=== PATIENT | female | born 1975 | race Caucasian/White ===

== ENCOUNTER 2019-10-03 06:05 | Day surgery (SDC) | payer OTHER ==
[~2019-10-03] VITALS: Ht 162.6 cm; Wt 99.3 kg
[2019-10-03 06:32] VITALS: BP 116/71
--- NOTE | 2019-10-03 06:52 | NUR ---
[facility] LAB SEND AND FAXED TO DR JEMAL MINOR OFFICE ON 09/27/19 AT 1300 , AND GAVE A COPY TO DR PRESTON- ANESTHESIOLOGIST-NO FURTHER ORDER, OK'D FOR SURGERY.
[2019-10-03 10:28] VITALS: BP 103/51
== END 2019-10-03 10:25 | disposition home or self-care (01) ==
LOC: DS 06:05 → OR 07:30 → DS 10:25
PROVIDERS: ATTEND Obstetrics & Gynecology
DX: N92.1 Excessive and frequent menstruation with irregular cycle (principal); D25.9 Leiomyoma of uterus, unspecified; F32.9 Major depressive disorder, single episode, unspecified; D64.9 Anemia, unspecified; Z11.59 Encounter for screening for other viral diseases
CPT/HCPCS: J3010; U0003-CS

== ENCOUNTER 2020-04-09 06:15 | Day surgery (SDC) | payer OTHER ==
--- NOTE | 2020-04-08 11:50 | NUR ---
CALL TO DR JEMAL MINOR OFFICE SPOKE WITH RAMA. UPDATED ON PATIENTS DECISION TO COME TODAY TO HAVE THE COVID-19 OPHELIA NASAL SWAB DONE PREOP. ALSO REVIEWED PTS PREOP LAB RESULTS. SHE STATES " IS AWARE. SURGERY FOR TOMORROW MORNING." COPY OF LAB TO OR FOR ANESTHESIA TO REVIEW.
[~2020-04-09] VITALS: Ht 162.6 cm; Wt 99.8 kg
[2020-04-09 06:46] VITALS: BP 117/71
[2020-04-09 11:54] VITALS: BP 119/72
== END 2020-04-09 10:35 | disposition home or self-care (01) ==
LOC: DS 06:15 → OR 07:30 → DS 07:30
PROVIDERS: ATTEND Obstetrics & Gynecology
DX: N92.1 Excessive and frequent menstruation with irregular cycle (principal); D64.9 Anemia, unspecified; E66.01 Morbid (severe) obesity due to excess calories; Z68.41 Body mass index [BMI] 40.0-44.9, adult
CPT/HCPCS: J0690; J2405; J2704; J3010; J7120